=== PATIENT | male | born 1970 ===

== ENCOUNTER → 2023-03-26 06:12 | Outpatient (CLI) | payer OTHER ==
[2023-03-26 06:51] LABS: HEMATOCRIT 43.7 % (39.0-48.0); MEAN CELL VOLUME 88.4 fL (80.0-100.00); MEAN CORPUSCULAR HEMOGLOBIN 30.4 pg (27.00-32.0); MEAN CORPUSCULAR HGB CONC 34.3 g/dl (32.0-36.0); PLATELET COUNT 228 K/uL (150-450); RED BLOOD COUNT 4.94 M/uL (4.00-6.00); RED CELL DISTRIBUTION WIDTH 12.9 % (11.5-14.5)
[2023-03-26 07:03] LABS: URINE APPEARANCE Clear; URINE BILIRRUBIN Negative (NEGATIVE); URINE BLOOD Negative; URINE COLOR Yellow; URINE GLUCOSE Negative (NEGATIVE); URINE LEUKOCYTE Negative; URINE NITRATE Negative; URINE PROTEIN Negative (NEGATIVE); URINE UROBILINOGEN 0.2 E.U./dl
[2023-03-26 07:05] LABS: URINE BACTERIA 6.2 uL (0.0-1933)
[2023-03-26 07:26] LABS: URINE EPITHELIAL CELLS 0.9 uL (0.0-38.8); URINE RBC 0.5 uL (0.0-20.8); URINE WBC 1.3 uL (0.0-23.2)
[2023-03-26 07:42] LABS: ALBUMIN 4.4 gm/dL (3.4-5.0); ALKALINE PHOSPHATASE 64 U/L (50-136); ALT/SGPT 22 U/L (12-78); ANION GAP 10 (10.0-20.0); AST/SGOT 15 U/L (15-37); BLOOD UREA NITROGEN 18 mg/dL (7-18); BUN CREA RATIO 16 (7.0-25.0); CALCIUM 9.8 mg/dL (8.5-10.1); CARBON DIOXIDE 31 mEq/L (21-32); CHLORIDE 105 mmol/L (98-107); CHOLESTEROL 243 mg/dL (0-200); GFR 70.57; GLOBULINA 2.8 G/DL (2.4-3.5); GLUCOSE FASTING 106 mg/dL (65-100); OSMOLALITY SERUM 284 MOSM/KG (275-295); POTASSIUM 5.04 mEq/L (3.5-5.1); PROSTATIC SPECIFIC ANTIGEN 0.521 NG/ML (0.010-4.00); SODIUM 141 mmol/L (136-145); T4 TOTAL 7.45 UG/DL (4.5-12.1); TOTAL PROTEIN 7.2 gm/dL (6.4-8.2)
[2023-03-26 07:45] LABS: C-REACTIVE PROTEIN < 0.29 MG/DL (0.00-0.29)
[2023-03-26 12:15] LABS: T3 TOTAL 0.904 ng/ml (0.846-2.02); VITAMIN D3 25 HYDROXY 38.92 ng/ml (30-120)
== END | disposition home or self-care (01) ==
LOC: LAB 06:12
PROVIDERS: ATTEND Urology
DX: D50.0 Iron deficiency anemia secondary to blood loss (chronic) (principal); I11.9 Hypertensive heart disease without heart failure; E78.2 Mixed hyperlipidemia; E03.9 Hypothyroidism, unspecified; E55.9 Vitamin D deficiency, unspecified; Z12.11 Encounter for screening for malignant neoplasm of colon; D24.9 Benign neoplasm of unspecified breast; N40.0 Benign prostatic hyperplasia without lower urinary tract symptoms